=== PATIENT | male | born 1975 | race Caucasian/White ===

== ENCOUNTER → 2017-01-18 | Outpatient (REF) ==
[~2017-01-18] MED LIST: NO HOME MEDICATIONS
== END ==
LOC: WSOH 13:02
DX: Z02.89 Encounter for other administrative examinations (principal)

== ENCOUNTER → 2017-03-11 | Outpatient (REF) | LOC: WSOH 16:30 | DX: Z02.89 Encounter for other administrative examinations (principal) ==

== ENCOUNTER 2020-03-10 01:07 | Emergency (ER) | payer OTHER ==
[~2020-03-10] VITALS: Ht 188 cm; Wt 100.0 kg
[2020-03-10 01:33] LABS: BASO # 0.1 (0.0-0.2); BASO % 0.7 % (0.0-2.0); EOS # 0.1 (0.0-0.7); EOS % 1.3 % (0-4.0); GRAN % 50.3 % (42.2-75.2); HEMATOCRIT 44.1 % (42.0-52.0); HEMOGLOBIN 15.1 g/dl (13.5-18.0); LYMPH % 40.2 % (20.0-51.0); MEAN CELL VOLUME 90 fl (80.0-100.0); MEAN CORPUSCULAR HEMOGLOBIN 31 pg (27.0-31.0); MEAN CORPUSCULAR HGB CONC 34 g/dl (33.0-37.0); MEAN PLATELET VOLUME 10.6 fl (7.4-10.4); MONO # 0.7 (0.1-0.6); MONO % 7.3 % (1.7-9.3); PLATELET COUNT 180 K/mm3 (130-400); RED BLOOD COUNT 4.92 M/mm3 (4.20-5.60); REDCELL DISTRIBUTION WIDTH-CV 12.4 % (11.5-14.5)
[2020-03-10 02:12] LABS: ALBUMIN 4.9 gm/dL (3.5-5.0); BILIRUBIN,TOTAL 0.6 mg/dL (0.0-1.0); CALCIUM 8.9 mg/dL (8.4-10.2); CREATININE, serum 0.79 (0.66-1.25); POTASSIUM 3.8 mmol/L (3.4-5.0); TOTAL PROTEIN 7.7 gm/dL (6.4-8.2)
[2020-03-10 04:05] VITALS: TEMP 98.1
[2020-03-10 07:00] VITALS: BP 135/85; PULSE 89
== END 2020-03-10 07:30 | disposition short-term general hospital (02) ==
LOC: COL.ER 01:07
PROVIDERS: Emergency Medicine
DX: T23.202A Burn of second degree of left hand, unspecified site, initial encounter (principal); T23.232A Burn of second degree of multiple left fingers (nail), not including thumb, initial encounter; T23.251A Burn of second degree of right palm, initial encounter; T20.24XA Burn of second degree of nose (septum), initial encounter; T22.211A Burn of second degree of right forearm, initial encounter; T31.0 Burns involving less than 10% of body surface; Y26.XXXA Exposure to smoke, fire and flames, undetermined intent, initial encounter; Y92.830 Public park as the place of occurrence of the external cause
CPT/HCPCS: J1170; J7030